=== PATIENT | male | born 1965 | race Caucasian/White ===

== ENCOUNTER 2016-11-21 13:14 | Emergency (ER) | payer MEDICARE ==
[2016-11-21] MEDS ORDERED: Ondansetron HCl/PF 4 MG/2 ML Vial ONE (14:26)
[2016-11-21] MEDS ORDERED: Fentanyl 100 MCG/2 ML VIAL ONE (14:27)
[2016-11-21] MEDS ORDERED: Cephalexin 500 MG CAP ONE (14:27)
[2016-11-21] MEDS ORDERED: Ciprofloxacin 500 MG TAB ONE (14:27)
[2016-11-21 14:40] LABS: #Basophils 0.1 thou/uL (0.0-0.2); #Eosinphils 0.5 thou/uL (0.0-0.7); #Lymphocytes 0.8 thou/uL (1.20-3.40); #Monocytes 0.6 thou/uL (0.11-0.59); #Neutrophils 3.7 thou/uL (1.40-6.50); %Basophils 1.9 % (0.0-1.0); %Eosinophils 8.6 % (0.0-10.0); %Lymphocytes 13.8 % (21.0-51.0); %Monocytes 10.6 % (0.0-10.0); %Neutrophils 65.1 % (42.0-75.0); Hemoglobin 10.4 g/dL (14.0-18.0); INR-International Normal Ratio 1.4; Mean Corpuscular HGB CONC 31.7 g/dL (32.0-36.0); Mean Corpuscular Hemoglobin 25.9 pg (27.0-31.0); Mean Corpuscular Volume 81.8 fl (80.0-94.0); Mean Platelet Volume 9.8 fL (7.4-10.4); PTT 52.6 SEC (22.9-36.1); Platelet Count 90 thou/uL (130-400); Prothrombin Time 17.3 SEC (12.0-14.7); RBC Distribution Width 16.3 % (11.5-14.5); Red Blood Cell (RBC) Count 4.03 mill/uL (4.70-6.10); White Blood Cell (WBC) Count 5.7 thou/uL (4.8-10.8)
[2016-11-21 14:49] LABS: ALT (SGPT) 39 U/L (8-55); AST (SGOT) 48 U/L (5-34); Albumin 2.7 g/dL (3.5-5.0); Alkaline Phosphatase 119 U/L (40-150); Anion Gap 13 mmol/L (10-20); BUN (Urea Nitrogen) 6 mg/dL (8.4-25.7); Bilirubin, Total 2.9 mg/dL (0.2-1.2); CK (CPK) 208 U/L (30-200); Calc. Creatinine Clearance 0 mL/min (70-130); Calcium 8.3 mg/dL (7.8-10.44); Carbon Dioxide 23 mmol/L (22-29); Chloride 104 mmol/L (98-107); Estimated GFR-MDRD Greater than 90; Globulin 4.1 g/dL (2.4-3.5); Glucose 133 mg/dL (70-105); Potassium 3.7 mmol/L (3.5-5.1); Protein, Total 6.8 g/dL (6.0-8.3); Sodium 136 mmol/L (136-145)
[2016-11-21 14:50] LABS: CKMB 3.9 ng/mL (0-6.6); Troponin I Less than 0.010 ng/mL (< 0.028)
[2016-11-21] MEDS ORDERED: Sodium Chloride 0.9% 1,000 ML ONE ×2 (14:55→15:53)
[2016-11-21 17:12] LABS: Lactic Acid 1.9 mmol/L (0.5-2.2)
== END 2016-11-21 17:50 | disposition home or self-care (01) ==
LOC: NAV ERS 13:14
DX: S91.332A Puncture wound without foreign body, left foot, initial encounter (principal); M54.5 Low back pain; D64.9 Anemia, unspecified; D69.6 Thrombocytopenia, unspecified; Z86.19 Personal history of other infectious and parasitic diseases; K21.9 Gastro-esophageal reflux disease without esophagitis; W22.8XXA Striking against or struck by other objects, initial encounter
CPT/HCPCS: 80053; 82553; 83605; 84484; 85025; 85610; 85730; 96361; 96374; 96375; J2405; J3010; J7050

== ENCOUNTER 2016-12-14 21:52 | Emergency (ER) | payer MEDICARE ==
[2016-12-14] MEDS ORDERED: Fentanyl 100 MCG/2 ML VIAL ONE (22:21)
--- NOTE | 2016-12-14 22:44 | RAD ---
LEFT HAND THREE VIEWS: 12/14/16 HISTORY: Injury, left hand pain. FINDINGS/IMPRESSION: No acute fracture or dislocation is seen. POS: [facility]
--- NOTE | 2016-12-14 22:56 | RAD ---
RIGHT HAND THREE VIEWS: 12/14/16 HISTORY: Right hand injury and pain. FINDINGS/IMPRESSION: No fracture or dislocation is identified. No radiopaque foreign body is seen. POS: H
== END 2016-12-14 23:20 | disposition home or self-care (01) ==
LOC: NAV ERS 21:52
DX: S60.222A Contusion of left hand, initial encounter (principal); S60.221A Contusion of right hand, initial encounter; K74.60 Unspecified cirrhosis of liver; I10 Essential (primary) hypertension; K21.9 Gastro-esophageal reflux disease without esophagitis; F32.9 Major depressive disorder, single episode, unspecified; W23.0XXA Caught, crushed, jammed, or pinched between moving objects, initial encounter
CPT/HCPCS: 96372; J3010

== ENCOUNTER 2019-02-21 15:41 | Emergency (ER) | payer MEDICARE ==
--- NOTE | 2019-02-21 16:15 | RAD ---
2 views chest: 02/21/2019 COMPARISON: 01/11/2015 HISTORY: Chest pain and cough FINDINGS: Numerous metallic foreign bodies overlie the left shoulder, stable. The heart and mediastin al contours are stable. There is no pneumothorax, pleural fluid, focal consolidation, or alveolar edema. IMPRESSION: No acute findings.
== END 2019-02-21 16:33 | disposition home or self-care (01) ==
LOC: NAV ERS 15:41
DX: S29.011A Strain of muscle and tendon of front wall of thorax, initial encounter (principal); R05 Cough; I10 Essential (primary) hypertension; K21.9 Gastro-esophageal reflux disease without esophagitis; K74.60 Unspecified cirrhosis of liver; F32.9 Major depressive disorder, single episode, unspecified; Z86.19 Personal history of other infectious and parasitic diseases; W19.XXXA Unspecified fall, initial encounter
CPT/HCPCS: 71046; 93005; 94760

== ENCOUNTER 2019-04-13 19:59 | Emergency (ER) | payer MEDICARE | END 2019-04-13 20:51 | LOC: NAV ERS 19:59 | DX: Z02.89 Encounter for other administrative examinations (principal); E11.9 Type 2 diabetes mellitus without complications; F32.9 Major depressive disorder, single episode, unspecified; I10 Essential (primary) hypertension; K21.9 Gastro-esophageal reflux disease without esophagitis; K74.60 Unspecified cirrhosis of liver; Z86.19 Personal history of other infectious and parasitic diseases; Z85.05 Personal history of malignant neoplasm of liver; Z79.899 Other long term (current) drug therapy | CPT/HCPCS: 99283 ==